=== PATIENT | female | born 1940 | race Caucasian/White ===

== ENCOUNTER 2019-10-08 17:05 | Emergency (ER) | payer MEDICARE ==
[2019-10-08 17:13] VITALS: BP 151/73
[2019-10-08] MEDS ORDERED: KETOROLAC TROMETHAMINE INJ/PF 30 MG/1 ML SDV IM ONE (17:22)
[2019-10-08] MEDS ORDERED: LIDOCAINE 5% (700 MG) TRANSDERMAL ADH..PATCH TP ONE (17:22)
[2019-10-08] MEDS ORDERED: DEXAMETHASONE SOD PHOS INJ 10 MG/1 ML VIAL IM ONE (17:22)
--- NOTE | 2019-10-08 17:25 | ER Document Report ---
HPI - HPI Time Seen by Provider: 10/08/19 17:12 Pain Level: 5 Notes: Patient is a 79-year-old female with no significant past medical history who presents with daughter complaining of left lower lateral back pain that is been present for the past 7 days. Patient states that she may have slept wrong and woke up with some pain in the area. She was seen by her family doctor and was given a muscle relaxer as well as having x-rays performed. Patient states that the pain does not radiate. She is able to eat and drink without difficulty. She is urinating normally and having normal bowel movements. No recent illness. Patient states that bending and twisting makes the pain worse. Denies any known injury. No drug allergies. No history of IV drug abuse, diabetes, spinal abscess. Denies any headache, fever, head injury, neck pain, changes in vision/speech/mentation/hearing, URI, sore throat, chest pain, palpitations, syncope, cough, shortness of breath, wheeze, dyspnea, abdominal pain, nausea/vomiting/diarrhea, urinary retention, dysuria, hematuria, loss of control of bowel or bladder, numbness/tingling, saddle anesthesia, muscle paralysis/weakness, or rash. - ROS Systems Reviewed and Negative: Yes All other systems reviewed and negative - CONSTITUTIONAL Constitutional: DENIES: Fever, Chills Past Medical History - Social History Smoking Status: Unknown if Ever Smoked Family History: Reviewed & Not Pertinent Patient has suicidal ideation: No Patient has homicidal ideation: No - Past Medical History Cardiac Medical History: Reports: Hx Hypertension Vertical Provider Document - CONSTITUTIONAL Agree With Documented VS: Yes Notes: PHYSICAL EXAMINATION: GENERAL: Well-appearing, well-nourished and in no acute distress. LUNGS: Breath sounds clear to auscultation bilaterally and equal. No wheezes rales or rhonchi. HEART: Regular rate and rhythm without murmurs, rubs, gallops. ABDOMEN: Soft, nontender, nondistended abdomen. No guarding, no rebound. Normal bowel sounds present. No CVA tenderness bilaterally. No pulsatile mass Musculoskeletal: LE's b/l: FROM to passive/active. Strength 5+/5. No deficits noted. No bony tenderness of extremities. Back: FROM to passive/active. Strength 5+/5. No vertebral point tenderness, stepoffs, or deformities. No other bony tenderness, erythema, swelling, or ecchymosis. SLR negative b/l. + reproducible tenderness to the left L- paraspinal mm near the posterior origin of the lower ribs/musculoskeletal area. Mild spasming. No SI jt tenderness. No foot drop Extremities: No cyanosis, clubbing, or edema b/l. Peripheral pulses 2+. Capillary refill less than 2 seconds. NEUROLOGICAL: Normal speech, normal gait. Normal sensory, motor exams. Reflexes 2+ b/l. PSYCH: Normal mood, normal affect. SKIN: Warm, Dry, normal turgor, no rashes or lesions noted. - INFECTION CONTROL TRAVEL OUTSIDE OF THE [place] IN LAST 30 DAYS: No Course - Re-evaluation Re-evalutation: 10/08/19 18:04 Patient is an afebrile, well-hydrated, 79-year-old female who presents to the ED with left paraspinal low back pain. Vitals are acceptable. PE is otherwise unremarkable for any focal neurological deficits. Patient was given Toradol, decadron, and Lidoderm patch. She has no significant tachycardia, tachypnea, or hypoxia. She is nontoxic-appearing and is tolerating p.o. without difficulties. There are no signs of infection. No other red flag symptoms noted. No other labs or imaging warranted at this time based on H&P. Low suspicion for any meningitis, fracture, expanding/ruptured AAA, cauda equina syndrome, epidural mass lesion/abscess, herniated disc causing severe spinal stenosis, or other systemic infection at this time. Patient is aware that this condition can change from initial presentation and that she needs monitor symptoms closely for any acute changes. I will send her home with a prescription for lidoderm patches and motrin. Conservative measures otherwise for symptoms. Recheck with your PCM in 3-5 days. Consider consult with orthopedic/physical therapy. Return to the ED with any worsening/concerning symptoms otherwise as reviewed discharge. Patient/daughter in agreement. - Vital Signs Vital signs: Temp Pulse Resp BP Pulse Ox 97.5 F 69 16 151/73 H 98 10/08/19 17:12 10/08/19 17:12 10/08/19 17:12 10/08/19 17:12 10/08/19 17:12 Discharge - Discharge Clinical Impression: Left paraspinal back pain Condition: Stable Disposition: HOME, SELF-CARE Additional Instructions: Rest, Ice Tylenol/ibuprofen as needed Light stretches daily Strength exercises as able Moist heat and massage may help F/u with your PCP in 3-5 days for a recheck Consider consult(s) with Orthopedics/physical therapy for ongoing/worsening symptoms Return to the ED with any worsening symptoms and/or development of fever, headache, chest pain, palpitations, syncope, shortness of breath, trouble breathing, abdominal pain, n/v/d, blood in stool/urine, loss of control of bowel/bladder, urinary retention, muscle weakness/paralysis, saddle anesthesia, numbness/tingling, or other worsening symptoms that are concerning to you. Prescriptions: Lidocaine [Lidoderm 5% (700 mg) Transdermal Patch] 1 patch TP DAILY #10 adh..patch Ibuprofen [Motrin 600 Mg Tablet] 600 mg PO TID #10 tablet Forms: Elevated Blood Pressure Referrals: CONCEPCION RADER MD [Primary Care Provider] - Follow up as needed [facility] [Provider Group] - Follow up as needed
--- NOTE | 2019-10-08 17:58 | RADIOLOGY REPORT (SQ) ---
EXAM DESCRIPTION: RIBS LEFT W/PA CHEST COMPLETED DATE/TIME: 10/08/2019 5:46 pm REASON FOR STUDY: left lower lateral/posterior rib pain COMPARISON: None. TECHNIQUE: Frontal view of the chest and additional views of the left ribs acquired. NUMBER OF VIEWS: Three views LIMITATIONS: None. FINDINGS: FRONTAL CXR: No pneumothorax. No pleural effusion. No atelectasis or infiltrates. RIBS: No displaced rib fractures. No lytic or blastic bony lesions. OTHER: No other significant finding. IMPRESSION: NO PNEUMOTHORAX. NO DISPLACED RIB FRACTURES. COMMENT: SITE OF TRAUMA/COMPLAINT MARKED/STAMP COMPLETED: No TECHNICAL DOCUMENTATION: JOB ID: [id number] [employer]- All Rights Reserved Reading location - IP/workstation name: [email or web address]
== END 2019-10-08 18:11 | disposition home or self-care (01) ==
LOC: ER 17:05
DX: M54.5 Low back pain (principal); I10 Essential (primary) hypertension
CPT/HCPCS: 71101; J1885; A9270; J1100; 96372; 99283

== ENCOUNTER 2019-10-24 17:38 | Emergency (ER) | payer MEDICARE ==
[2019-10-24] MEDS ORDERED: HYDROCODONE/ACETAMINOPHEN 5-325 MG TABLET PO ONE (18:07)
--- NOTE | 2019-10-24 18:08 | ER Document Report ---
HPI - HPI Time Seen by Provider: 10/24/19 18:00 Pain Level: 4 Notes: 79-year-old female patient presents emergency department after falling today. She suffered a mechanical fall, states that she is very wobbly on her feet. She is complaining of left wrist pain. There is an obvious deformity noted. Strong radial pulse, cap refill less than 3 seconds. Past Medical History - Social History Smoking Status: Never Smoker Family History: Reviewed & Not Pertinent Patient has suicidal ideation: No Patient has homicidal ideation: No - Past Medical History Cardiac Medical History: Reports: Hx Hypertension Vertical Provider Document - INFECTION CONTROL TRAVEL OUTSIDE OF THE [place] IN LAST 30 DAYS: No Course - Vital Signs Vital signs: Temp Pulse Resp BP Pulse Ox 98.2 F 95 16 157/95 H 99 10/24/19 17:53 10/24/19 17:53 10/24/19 17:53 10/24/19 17:53 10/24/19 17:53 Discharge - Discharge Referrals: CONCEPCION RADER MD [Primary Care Provider] - Follow up as needed
--- NOTE | 2019-10-24 18:57 | ER Document Report ---
ED Medical Screen (RME) - General Chief Complaint: Wrist Injury Stated Complaint: LEFT WRIST INJURY Time Seen by Provider: 10/24/19 18:00 Primary Care Provider: CONCEPCION RADER MD [Primary Care Provider] - Follow up as needed Mode of Arrival: Ambulatory Information source: Patient Notes: 79-year-old female patient presents emergency department after falling today. She suffered a mechanical fall, states that she is very wobbly on her feet. She is complaining of left wrist pain. There is an obvious deformity noted. Strong radial pulse, cap refill less than 3 seconds. I have greeted and performed a rapid initial assessment of this patient. A comprehensive ED assessment and evaluation of the patient, analysis of test results and completion of the medical decision making process will be conducted by additional ED providers. I have specifically instructed the patient or family members with the patient to immediately return to any nursing staff should anything change in the patient's condition or with their chief complaint. TRAVEL OUTSIDE OF THE [place] IN LAST 30 DAYS: No - Related Data Allergies/Adverse Reactions: No Known Allergies Allergy (Unverified 10/24/19 18:00) Past Medical History - Past Medical History Cardiac Medical History: Reports: Hx Hypertension Physical Exam - Vital signs Vitals: Temp Pulse Resp BP Pulse Ox 98.2 F 95 16 157/95 H 99 10/24/19 17:53 10/24/19 17:53 10/24/19 17:53 10/24/19 17:53 10/24/19 17:53 Course - Vital Signs Vital signs: Temp Pulse Resp BP Pulse Ox 98.2 F 95 16 157/95 H 99 10/24/19 17:53 10/24/19 17:53 10/24/19 17:53 10/24/19 17:53 10/24/19 17:53 Doctor's Discharge - Discharge Referrals: CONCEPCION RADER MD [Primary Care Provider] - Follow up as needed
--- NOTE | 2019-10-24 18:57 | RADIOLOGY REPORT (SQ) ---
EXAM DESCRIPTION: WRIST LEFT 3 VIEWS COMPLETED DATE/TIME: 10/24/2019 5:40 pm REASON FOR STUDY: fall, appears dislocated COMPARISON: None. NUMBER OF VIEWS: Three views. TECHNIQUE: AP, lateral, and oblique radiographic images acquired of the left wrist. LIMITATIONS: None. FINDINGS: MINERALIZATION: Osteopenia. BONES: Acute impacted and dorsal angulated fracture of the distal radial metaphysis. There is also a fracture of the distal ulnar styloid process. SOFT TISSUES: There is soft tissue swelling at the distal radius and ulna. No foreign body. OTHER: No other significant finding. IMPRESSION: Acute impacted and dorsally angulated fracture of the distal radial metaphysis. Fractur e of the distal ulnar styloid process. Moderate osteopenia. TECHNICAL DOCUMENTATION: JOB ID: [id number] [employer]- All Rights Reserved Reading location - IP/workstation name: [email or web address]
[2019-10-24] MEDS ORDERED: BUPIVACAINE HCL 0.5 % INJ/PF 30 ML SDV INJ ONE (22:32)
[2019-10-24] MEDS ORDERED: LIDOCAINE 1% INJ (10 MG/ML) 10 ML MDV INJ ONE (22:32)
--- NOTE | 2019-10-24 22:36 | ER Document Report ---
ED General - General Chief Complaint: Wrist Injury Stated Complaint: LEFT WRIST INJURY Time Seen by Provider: 10/24/19 18:00 Primary Care Provider: CONCEPCION RADER MD [Primary Care Provider] - Follow up as needed Mode of Arrival: Ambulatory Notes: 79-year-old female who fell while walking today, she lost her balance and fell backwards and tried to catch herself with her left hand. Patient now has pain in her distal left arm around the wrist as well as a dorsal deformity to the left wrist. Did not hit her head, denies any loss of consciousness, denies any numbness, tingling or weakness in her left hand. Patient is right-handed. Patient also mentions back pain that she has been having since September. States she strained her back and is taking tizanidine and lidocaine patches to help it but it has not helped. Only thing that has been helping her back pain is a steroid shot that she received here in the emergency department a few weeks ago. Denies any change in her back pain, daughter's concern at bedside is that the back pain may be something that contributed to her losing her balance. Last oral intake was 1500. TRAVEL OUTSIDE OF THE [place] IN LAST 30 DAYS: No - Related Data Allergies/Adverse Reactions: No Known Allergies Allergy (Unverified 10/24/19 18:00) Past Medical History - General Information source: Patient - Social History Smoking Status: Never Smoker Chew tobacco use (# tins/day): No Frequency of alcohol use: None Drug Abuse: None Family History: CAD, DM Patient has suicidal ideation: No Patient has homicidal ideation: No - Past Medical History Cardiac Medical History: Reports: Hx Hypertension Review of Systems - Review of Systems Constitutional: No symptoms reported EENT: No symptoms reported Cardiovascular: No symptoms reported Respiratory: No symptoms reported Musculoskeletal: See HPI, Deformity. denies: Neck pain Skin: No symptoms reported Neurological/Psychological: No symptoms reported Physical Exam - Vital signs Vitals: Temp Pulse Resp BP Pulse Ox 98.2 F 95 16 157/95 H 99 10/24/19 17:53 10/24/19 17:53 10/24/19 17:53 10/24/19 17:53 10/24/19 17:53 Interpretation: Hypertensive - Notes Notes: GENERAL: Alert, interacts well. No acute distress. HEAD: Normocephalic, atraumatic EYES: Pupils equal, round and reactive to light, extraocular movements intact. ENT: Oral mucosa moist, tongue midline. NECK: Full range of motion, supple, trachea midline. LUNGS: no respiratory distress. EXTREMITIES: Moves all 4 extremities spontaneously including her left wrist which has an obvious deformity. Patient is surprisingly comfortable, able to gesture with her left hand and wrist without difficulty. No difficulty moving the fingers on her left hand, has some pain with flexion extension of her left wrist but does do it anyway while talking, there is swelling over her left wrist with a dorsal angulation deformity to the radial aspect of the left wrist, radial and dorsalis pedis pulses 2/4 bilaterally. No cyanosis. Station is intact. NEUROLOGICAL: Alert and oriented x3, normal speech. PSYCH: Normal mood, normal affect. SKIN: Warm, Dry. No breaks in the skin over top of the fracture. Course - Re-evaluation Re-evalutation: 10/25/19 00:49 Initial x-ray shows ulnar styloid fracture and distal radius fracture with dorsal angulation and impaction. Hematoma block was performed, fracture was reduced, there is improvement but it is not perfect. Given the fact that the patient tolerated this very well and already had full range of motion of her wrist even with the significant angulation at this time I will leave her in the splint and orthopedics can follow-up as an outpatient should they require further reduction this should easily be achieved in the office. Patient will be discharged to home. - Vital Signs Vital signs: Temp Pulse Resp BP Pulse Ox 98.1 F 81 18 147/69 H 100 10/24/19 22:41 10/24/19 22:41 10/24/19 22:41 10/24/19 22:41 10/24/19 22:41 Procedures - Immobilization Left Wrist Pre-Proc Neuro Vasc Exam: Normal Immobilizer type: Sugar tong Performed by: Provider, PCT Post-Proc Neuro Vasc Exam: Normal, Unchanged from pre-exam Alignment checked and good: No - Reduced partially. - Joint Reduction/Fracture Care Left Wrist Consent obtained: Yes Conscious sedation: No Pre-procedure NV exam: Yes - Normal Fracture: Closed Manipulation comment: Hematoma block used, easily reduced without significant pain. Post-procedure NV exam: Yes Reduction attempts: 1 Complications: No Notes: 10/25/19 00:51 Partial reduction achieved, patient had full range of motion prior to reduction, suspect this will heal well despite continued angulation. Patient will follow- up with orthopedics as an outpatient, possibly will need some more gentle reduction in the office prior to casting. Discharge - Discharge Clinical Impression: Nondisplaced fracture of left ulna styloid process, initial encounter for closed fracture Left wrist fracture Qualifiers: Encounter type: initial encounter Fracture type: closed Qualified Code(s): S62.102A - Fracture of unspecified carpal bone, left wrist, initial encounter for closed fracture Distal radius fracture, left Qualifiers: Encounter type: initial encounter Fracture type: closed Fracture morphology: Colles' Qualified Code(s): S52.532A - Colles' fracture of left radius, initial encounter for closed fracture Condition: Stable Disposition: HOME, SELF-CARE Additional Instructions: Fractured Radius and Ulna Both bones of the forearm, the radius and the ulna, are fractured. This type of fracture is typically caused by falling onto the outstretched hand. The fractures are not serious, however, and should heal well with adequate protection. A cast or splint is used to protect the fractures. For the first few days after the injury, the arm should be elevated and ice packed. Most often, a splint is used first, with a cast later on. Healing takes from four to eight weeks, depending on the age of the patient and the seriousness of the broken bones. Your doctor has explained the treatment plan. It's important that you follow up as instructed to prevent complications. Call the doctor or return at once if severe pain or swelling occur, or if the hand becomes numb, swollen, or discolored. There is still some angulation of the bones in your wrist however given how well you are able to use your wrist before it was reduced I suspect a small amount of angulation will probably be okay. If when you see the orthopedic surgeon they feel it needs to be reduced further they will likely be able to do that for you in their office just like I did it today in the emergency department. Referrals: EDVIN GALINDO JR, DO [ACTIVE PROVISIONAL STAFF] - Follow up in 3-5 days
--- NOTE | 2019-10-25 00:08 | RADIOLOGY REPORT (SQ) ---
EXAM DESCRIPTION: Three views of the left wrist CLINICAL HISTORY: 79 years Female, post-reduction COMPARISON: Radiographs of the wrist obtained earlier in the day at 6:36 PM FINDINGS: A splint has been placed which obscures fine bone detail. Fracture of the radial metaphysis is again noted with impaction and anterior angulation. The degree of angulation has diminished when compared the previous exam but still persists. Ulnar styloid fracture. Soft tissue swelling is seen. Overall bone mineralization is diminished. IMPRESSION: Interval placement of a splint. Improvement in angulation though there is persistent apex angulation of the metaphyseal fracture. Osteopenia.
[2019-10-25] MEDS ORDERED: HYDROCODONE/ACETAMINOPHEN 5-325 MG (6 TAB/ER DISP) PO PRN (00:53)
[2019-10-25 00:55] VITALS: BP 143/84
== END 2019-10-25 01:10 | disposition home or self-care (01) ==
LOC: ER 17:38
DX: S62.102A Fracture of unspecified carpal bone, left wrist, initial encounter for closed fracture (principal); S52.532A Colles' fracture of left radius, initial encounter for closed fracture; S52.615A Nondisplaced fracture of left ulna styloid process, initial encounter for closed fracture; W19.XXXA Unspecified fall, initial encounter; Y93.01 Activity, walking, marching and hiking; M54.5 Low back pain; G89.29 Other chronic pain; Z79.899 Other long term (current) drug therapy; I10 Essential (primary) hypertension
CPT/HCPCS: 99283; 73100; 73110; 25605; A9270 ×2